=== PATIENT | male | born 1990 | race Caucasian/White ===

== ENCOUNTER → 2019-11-20 | Outpatient (CLI) | payer OTHER | LOC: MHCPAIN 15:28 | DX: M54.16 Radiculopathy, lumbar region (principal); M47.27 Other spondylosis with radiculopathy, lumbosacral region | CPT/HCPCS: G0463 ==

== ENCOUNTER → 2019-11-28 | Outpatient (CLI) | payer OTHER | LOC: MHCPAIN 13:48 | DX: M54.5 Low back pain (principal) | CPT/HCPCS: J1100; Q9967 ==

== ENCOUNTER → 2019-12-11 | Outpatient (CLI) | payer OTHER | LOC: MHCPAIN 15:09 | DX: M47.27 Other spondylosis with radiculopathy, lumbosacral region (principal); M53.3 Sacrococcygeal disorders, not elsewhere classified | CPT/HCPCS: G0463 ==

== ENCOUNTER → 2019-12-19 | Outpatient (CLI) | payer OTHER | LOC: MHCPAIN 07:41 | DX: M54.5 Low back pain (principal) | CPT/HCPCS: J1100; Q9967 ==

== ENCOUNTER → 2020-03-04 | Outpatient (CLI) | payer OTHER | LOC: MHCPAIN 15:33 | DX: M47.817 Spondylosis without myelopathy or radiculopathy, lumbosacral region (principal); M54.5 Low back pain; M53.3 Sacrococcygeal disorders, not elsewhere classified; M54.16 Radiculopathy, lumbar region; G89.29 Other chronic pain | CPT/HCPCS: G0463 ==

== ENCOUNTER → 2020-03-19 | Outpatient (CLI) | payer OTHER | LOC: MHCPAIN 12:49 | DX: M47.817 Spondylosis without myelopathy or radiculopathy, lumbosacral region (principal); M53.3 Sacrococcygeal disorders, not elsewhere classified; M54.5 Low back pain | CPT/HCPCS: J1100; Q9967 ==

== ENCOUNTER → 2020-04-01 | Outpatient (CLI) | payer OTHER | LOC: MHCPAIN 09:23 | DX: M47.817 Spondylosis without myelopathy or radiculopathy, lumbosacral region (principal); M54.5 Low back pain; M53.3 Sacrococcygeal disorders, not elsewhere classified; G89.29 Other chronic pain | CPT/HCPCS: G0463 ==